=== PATIENT | female | born 1990 | race Caucasian/White ===

== ENCOUNTER 2018-03-29 18:16 | Emergency (ER) | payer OTHER ==
[~2018-03-29] VITALS: Ht 157.5 cm; Wt 83.9 kg
== END 2018-03-29 21:22 | disposition home or self-care (01) ==
LOC: ER 18:16
DX: M54.2 Cervicalgia (principal); F06.4 Anxiety disorder due to known physiological condition

== ENCOUNTER 2019-01-05 18:47 | Emergency (ER) | payer OTHER ==
[~2019-01-05] VITALS: Ht 157.5 cm; Wt 84.8 kg
[2019-01-05] MEDS ORDERED: COZAAR25 MG (19:00)
== END 2019-01-05 21:17 | disposition home or self-care (01) ==
LOC: ER 18:47
DX: K52.9 Noninfective gastroenteritis and colitis, unspecified (principal)

== ENCOUNTER 2019-02-12 13:12 | Emergency (ER) | payer OTHER ==
[~2019-02-12] VITALS: Ht 157.5 cm; Wt 84.8 kg
[~2019-02-12 13:12] MED LIST: COZAAR25 MG
== END 2019-02-12 19:07 | disposition home or self-care (01) ==
LOC: ER 13:12
DX: R07.89 Other chest pain (principal)

== ENCOUNTER 2019-10-21 18:23 | Emergency (ER) | payer OTHER ==
[~2019-10-21] VITALS: Ht 157.5 cm; Wt 95.3 kg
[2019-10-21] MEDS ORDERED: COZAAR50 MG PO (18:55)
== END 2019-10-21 21:52 | disposition home or self-care (01) ==
LOC: ER 18:23
DX: R07.89 Other chest pain (principal); I10 Essential (primary) hypertension